=== PATIENT | female | born 1990 | race Two or more races ===

== ENCOUNTER 2022-08-11 19:27 | Emergency (ER) | payer OTHER ==
[~2022-08-11] VITALS: Ht 175.3 cm; Wt 71.2 kg
[2022-08-11] MEDS ORDERED: PROMETRIUM200 MG (20:45)
[2022-08-11] MEDS ORDERED: FOLIC ACID20 MG (20:45)
== END 2022-08-11 22:42 | disposition home or self-care (01) ==
LOC: ER 19:27
DX: O23.41 Unspecified infection of urinary tract in pregnancy, first trimester (principal); N39.0 Urinary tract infection, site not specified; Z3A.10 10 weeks gestation of pregnancy; R10.2 Pelvic and perineal pain

== ENCOUNTER 2022-08-12 11:01 | Emergency (ER) | payer OTHER ==
[~2022-08-12] VITALS: Ht 175.3 cm; Wt 71.2 kg
[~2022-08-12 11:01] MED LIST: FOLIC ACID20 MG; PROMETRIUM200 MG
== END 2022-08-12 15:47 | disposition home or self-care (01) ==
LOC: ER 11:01
DX: O20.9 Hemorrhage in early pregnancy, unspecified (principal); Z3A.15 15 weeks gestation of pregnancy; R10.2 Pelvic and perineal pain

== ENCOUNTER 2022-10-20 14:44 | Outpatient (CLI) | payer OTHER | END 2022-10-20 17:36 | disposition home or self-care (01) | LOC: PRENATAL 14:44 | PROVIDERS: ATTEND Obstetrics & Gynecology Maternal & Fetal Medicine | DX: O35.9XX0 Maternal care for (suspected) fetal abnormality and damage, unspecified, not applicable or unspecified (principal); O35.3XX0 Maternal care for (suspected) damage to fetus from viral disease in mother, not applicable or unspecified; O34.10 Maternal care for benign tumor of corpus uteri, unspecified trimester; Z3A.20 20 weeks gestation of pregnancy ==

== ENCOUNTER 2023-01-15 08:27 | Outpatient (CLI) | payer OTHER | END 2023-01-15 09:36 | disposition home or self-care (01) | LOC: PRENATAL 08:27 | PROVIDERS: ATTEND Obstetrics & Gynecology Maternal & Fetal Medicine | DX: O26.849 Uterine size-date discrepancy, unspecified trimester (principal); O36.8199 Decreased fetal movements, unspecified trimester, other fetus; O34.10 Maternal care for benign tumor of corpus uteri, unspecified trimester; O24.419 Gestational diabetes mellitus in pregnancy, unspecified control; Z3A.33 33 weeks gestation of pregnancy ==

== ENCOUNTER 2023-02-05 08:29 | Outpatient (CLI) | payer OTHER | END 2023-02-05 10:04 | disposition home or self-care (01) | LOC: PRENATAL 08:29 | PROVIDERS: ATTEND Obstetrics & Gynecology Maternal & Fetal Medicine | DX: O26.849 Uterine size-date discrepancy, unspecified trimester (principal); O36.8199 Decreased fetal movements, unspecified trimester, other fetus; O24.419 Gestational diabetes mellitus in pregnancy, unspecified control; O34.10 Maternal care for benign tumor of corpus uteri, unspecified trimester; Z3A.36 36 weeks gestation of pregnancy ==

== ENCOUNTER 2023-02-23 16:30 | Inpatient (IN) | payer OTHER ==
[~2023-02-23] VITALS: Ht 175.3 cm; Wt 82.1 kg
[2023-02-23] MEDS ORDERED: PRENATAL TABLE1 EAC1 PO (17:07)
[2023-02-23 17:28] LABS: HEMATOCRIT 35.7 % (36.0-45.00); HEMOGLOBIN 12.4 g/dL (12.0-15.00); MEAN CELL VOLUME 91.2 fL (80.00-100.00); MEAN CORPUSCULAR HEMOGLOBIN 31.8 pg (27.00-32.0); MEAN CORPUSCULAR HGB CONC 34.9 g/dl (32.0-36.0); PLATELET COUNT 200 K/uL (150-450); RED BLOOD COUNT 3.91 M/uL (4.00-6.00); RED CELL DISTRIBUTION WIDTH 13.8 % (11.5-14.5); URINE APPEARANCE Clear; URINE BILIRRUBIN Negative (NEGATIVE); URINE BLOOD Negative; URINE COLOR Yellow; URINE LEUKOCYTE Negative; URINE NITRATE Negative; URINE PROTEIN Negative (NEGATIVE); URINE UROBILINOGEN 0.2 E.U./dl
[2023-02-23 17:29] LABS: URINE BACTERIA 316.1 uL (0.0-1933); URINE EPITHELIAL CELLS 21.4 uL (0.0-38.8); URINE WBC 16.2 uL (0.0-23.2)
[2023-02-23 17:36] LABS: URINE GLUCOSE 250 MG/DL (NEGATIVE); URINE RBC 1.7 uL (0.0-20.8)
[2023-02-23 17:55] LABS: INR 0.98; PARTIAL THROMBOPLASTIN TIME 25.3 SECONDS (22.0-34.0); PROTHROMBIN TIME 10.3 SECONDS (9.0-11.5)
[2023-02-24 21:58] LABS: HEMOGLOBIN 12.3 g/dL (12.0-15.00); MEAN CELL VOLUME 91.5 fL (80.00-100.00); MEAN CORPUSCULAR HEMOGLOBIN 31.3 pg (27.00-32.0); MEAN CORPUSCULAR HGB CONC 34.2 g/dl (32.0-36.0); PLATELET COUNT 187 K/uL (150-450); RED BLOOD COUNT 3.93 M/uL (4.00-6.00); RED CELL DISTRIBUTION WIDTH 14.1 % (11.5-14.5)
== END 2023-02-26 14:43 | disposition home or self-care (01) | DRG 807 ==
LOC: LDR 16:30 → OB/GYN 02-24 17:04
PROVIDERS: ADMIT Obstetrics & Gynecology; ATTEND Obstetrics & Gynecology
PROC: 4A1HXCZ Monitoring of Products of Conception, Cardiac Rate, External Approach (ICD-10-PCS; 2023-02-23)
PROC: 10E0XZZ Delivery of Products of Conception, External Approach (ICD-10-PCS; principal; 2023-02-24)
DX: O24.420 Gestational diabetes mellitus in childbirth, diet controlled (principal); Z37.0 Single live birth; Z3A.38 38 weeks gestation of pregnancy; Z20.822 Contact with and (suspected) exposure to COVID-19